=== PATIENT | female | born 1970 | race Caucasian/White ===

== ENCOUNTER → 2019-09-05 | Outpatient (CLI) | payer BC ==
[2016-09-07 06:31] VITALS: BP 142/70
[~2019-09-05] MED LIST: PRED20TA PO
--- NOTE | 2019-09-06 09:10 | RAD ---
DATE: 09/05/2019 EXAM: MAMMO JOSE SCREENING BILATERAL HISTORY: Asymptomatic screening mammogram COMPARISON: 09/27/2015, 09/19/2014 This study was interpreted with the benefit of Computerized Aided Detection (CAD). Breast Density: SCATTERED The breast parenchyma shows scattered fibroglandular densities. Breast parenchyma level B. FINDINGS: Bilateral CC and MLO views of the breasts were performed. Bilateral breast tomosynthesis was performed in CC and MLO projections. Right breast: There are no suspicious microcalcifications, masses or areas of architectural distortion. Left breast: There are no suspicious microcalcifications, masses or areas of architectural distortion. Findings are stable from prior mammogram. IMPRESSION: Negative bilateral mammogram. BI-RADS CATEGORY: 1 NEGATIVE RECOMMENDED FOLLOW-UP: 12M 12 MONTH FOLLOW-UP PQRS compliance statement: Patient information was entered into a reminder system with a target due date 09/05/2020 for the next mammogram. Mammography is a sensitive method for finding small breast cancers, but it does not detect them all and is not a substitute for careful clinical examination. A negative mammogram does not negate a clinically suspicious finding and should not result in delay in biopsying a clinically suspicious abnormality. "Our facility is accredited by the [employer] Mammography Program."
== END | disposition home or self-care (01) ==
LOC: MAMMO 15:43
PROVIDERS: ATTEND Physician Assistant Medical
DX: Z12.31 Encounter for screening mammogram for malignant neoplasm of breast (principal)
CPT/HCPCS: 77063; 77067

== ENCOUNTER 2019-12-11 07:41 | Emergency (ER) | payer BC ==
[~2019-12-11] VITALS: Ht 147.3 cm; Wt 65.3 kg
--- NOTE | 2019-12-11 08:18 | PHYS DOC ---
Past History Past Medical History: No Pertinent History Past Surgical History: , Hysterectomy Alcohol Use: Occasionally Drug Use: None Adult General Chief Complaint Chief Complaint: VAGINAL PROBLEM HPI HPI 49-year-old female presents for concerns of STD. The patient has been having vaginal itching, dryness, some pain. She denies vaginal discharge. The patient admits to having sex with someone outside of her marriage. She denies fever or chills. She has had some urinary frequency. She has been using vaginal wipes and cleansing washes. Review of Systems Review of Systems Constitutional: Denies fever or chills [] Eyes: Denies change in visual acuity, redness, or eye pain [] HENT: Denies nasal congestion or sore throat [] Respiratory: Denies cough or shortness of breath [] Cardiovascular: No additional information not addressed in HPI [] GI: Denies abdominal pain, nausea, vomiting, bloody stools or diarrhea [] : No itching, increased urinary frequency[] Musculoskeletal: Denies back pain or joint pain [] Integument: Denies rash or skin lesions [] Neurologic: Denies headache, focal weakness or sensory changes [] Endocrine: Denies polyuria or polydipsia [] All other systems were reviewed and found to be within normal limits, except as documented in this note. Allergies Allergies Allergies Coded Allergies Type Severity Reaction Last Updated Verified Penicillins Allergy Unknown 09/07/16 Yes Physical Exam Physical Exam Constitutional: Well developed, well nourished, no acute distress, non-toxic appearance. [] HENT: Normocephalic, atraumatic, bilateral external ears normal, oropharynx moist, no oral exudates, nose normal. [] Eyes: PERRLA, EOMI, conjunctiva normal, no discharge. [] Neck: Normal range of motion, no tenderness, supple, no stridor. [] Cardiovascular:Heart rate regular rhythm, no murmur [] Lungs & Thorax: Bilateral breath sounds clear to auscultation [] Abdomen: Bowel sounds normal, soft, no tenderness, no masses, no pulsatile masses. [] Skin: Warm, dry, no erythema, no rash. [] Back: No tenderness, no CVA tenderness. [] Extremities: No tenderness, no cyanosis, no clubbing, ROM intact, no edema. [] Neurologic: Alert and oriented X 3, normal motor function, normal sensory function, no focal deficits noted. [] Psychologic: Affect normal, judgement normal, mood nervous. : Normal external exam, mildly dry vaginal canal with some thick, white discharge. No pain with exam. [] EKG EKG [] Radiology/Procedures Radiology/Procedures [] Course & Med Decision Making Course & Med Decision Making Pertinent Labs and Imaging studies reviewed. (See chart for details) The patient's urinalysis is unremarkable. Her wet prep is negative. Her discomfort could be due to her use of hygiene products. I advised the patient of this. She is stable for discharge at this time. [] Dragon Disclaimer Dragon Disclaimer This electronic medical record was generated, in whole or in part, using a voice recognition dictation system. Departure Departure: Impression: Primary Impression: Vaginal discomfort Disposition: 01 HOME, SELF-CARE Condition: STABLE Referrals: PCP,NO (PCP) Patient Instructions: Vaginitis, Atrophic, [id number] STEVE ANGUIANO DO Dec 11, 2019 08:18
[2019-12-11 08:50] LABS: BACTERIA,URINE 0 /HPF (0-FEW); BILIRUBIN,URINE NEG (NEG); CLARITY,URINE CLEAR; COLOR,URINE YELLOW; GLUCOSE,URINE NEG (NEG); NITRITE,URINE NEG (NEG); SQUAMOUS EPITHELIAL CELL,UR MOD /LPF; UROBILINOGEN,URINE 0.2 mg/dL (0.2 mg/dL); WBC,URINE OCC /HPF (0-4)
[2019-12-11 09:48] VITALS: BP 138/84
[2019-12-12 20:07] LABS: CHLAMYDIA PROBE Negative (Negative)
== END 2019-12-11 09:45 | disposition home or self-care (01) ==
LOC: ER 07:41
DX: N89.8 Other specified noninflammatory disorders of vagina (principal); R35.0 Frequency of micturition; Z98.890 Other specified postprocedural states; Z90.710 Acquired absence of both cervix and uterus; Z88.0 Allergy status to penicillin
CPT/HCPCS: 36415; 81001; 87491; 87591; 99284; Q0111

== ENCOUNTER 2021-09-25 13:45 | Emergency (ER) | payer SELFPAY ==
[~2021-09-25] VITALS: Ht 147.3 cm; Wt 70.0 kg
--- NOTE | 2021-09-25 14:23 | PHYS DOC ---
Past History Past Medical History: No Pertinent History Past Surgical History: , Hysterectomy Alcohol Use: None Drug Use: None General Adult EDM: Chief Complaint: HIP PAIN HPI: HPI: 51-year-old female presents with left lateral hip pain and abdominal. Patient has been having lateral left leg discomfort for about 3 weeks. She walks around a lot at work and has to wear steel boots. She presents today because the pain has radiated around to her lower abdomen and her back. She is also not know what is going on. She has not had discomfort like this before. She denies any falls or trauma. Denies fever, chills nausea, vomiting, or diarrhea. She does admit to not drinking very much water. Review of Systems: Review of Systems: Constitutional: Denies fever or chills Eyes: Denies change in visual acuity HENT: Denies nasal congestion or sore throat Respiratory: Denies cough or shortness of breath Cardiovascular: Denies chest pain or edema GI: Lower abdominal pain. Denies nausea, vomiting, bloody stools or diarrhea : Denies dysuria Musculoskeletal: left lateral hip pain Integument: Denies rash Neurologic: Denies headache, focal weakness or sensory changes Endocrine: Denies polyuria or polydipsia Lymphatic: Denies swollen glands Psychiatric: Denies depression or anxiety Allergies: Allergies: Allergies Coded Allergies Type Severity Reaction Last Updated Verified Penicillins Allergy Unknown 09/07/16 Yes Physical Exam: PE: Constitutional: Well developed, well nourished, no acute distress, non-toxic appearance. [] HENT: Normocephalic, atraumatic, bilateral external ears normal, oropharynx moist, no oral exudates, nose normal. [] Eyes: PERRLA, EOMI, conjunctiva normal, no discharge. [] Neck: Normal range of motion, no tenderness, supple, no stridor. [] Cardiovascular: Heart rate regular rhythm, no murmur [] Lungs & Thorax: Bilateral breath sounds clear to auscultation [] Abdomen: Bowel sounds normal, soft, lower abdominal tenderness, no masses, no pulsatile masses. [] Skin: Warm, dry, no erythema, no rash. [] Back: No tenderness, no CVA tenderness. [] Extremities: Tightness of the left ATFL ligament, mild tenderness. [] Neurologic: Alert and oriented X 3, normal motor function, normal sensory function, no focal deficits noted. [] Psychologic: Affect normal, judgement normal, mood normal. [] Current Patient Data: Vital Signs: Vital Signs Date Time Temp Pulse Resp B/P (MAP) Pulse Ox O2 Delivery O2 Flow Rate FiO2 09/25/21 13:55 98.4 73 16 209/80 (123) 99 Room Air EKG: EKG: [] Radiology/Procedures: Radiology/Procedures: [] Impressions: XR BILATERAL HIP (WITH OR WITHOUT PELVIS) LEFT 2 VIEWS Clinical indications: Reason: pain, no known injury. Findings: No acute fracture or dislocation or osteolytic process is evident. No significant arthritic change is seen. IMPRESSION: No acute osseous abnormality is evident. Electronically signed by: Shasta Mathews MD (09/25/2021 2:33 PM) [id number] DICTATED AND SIGNED BY: SHASTA MATHEWS MD DATE: 09/25/21 1431 CC: STEVE ANGUIANO DO; PCP,NO ~MTH0 0 CT ABDOMEN+PELVIS W History: Lower abdominal pain. Comparison: None. Technique: CT of the abdomen and pelvis with intravenous contrast. Findings: Lung bases are clear. The visualized heart is unremarkable. The liver, gallbladder, pancreas, spleen, and adrenal glands are unremarkable. There are subcentimeter right renal hypodensities which are too small to characterize most likely represent cysts. No hydronephrosis or nephrolithiasis. The bladder is decompressed and unremarkable. Status post hysterectomy. There is a left adnexal cystic lesion measuring 3.2 cm diameter. The stomach and small bowel are unremarkable. Normal appendix. The colon is within normal limits. No free intraperitoneal air or fluid. Abdominopelvic vasculature is within normal limits. No adenopathy. Soft tissues are unremarkable. No acute osseous abnormalities. Impression: 1. Left adnexal cystic lesion measuring 3.2 cm may represent ovarian follicle/cyst. Correlate with site of pain. Consider pelvic ultrasound for further characterization. ------ Exposure: One or more of the following individualized dose reduction techniques were utilized for this examination: 1. Automated exposure control 2. Adjustment of the mA and/or kV according to patient size 3. Use of iterative reconstruction technique. Electronically signed by: Justin Luna MD (09/25/2021 2:52 PM) [facility] DICTATED AND SIGNED BY: JUSTIN LUNA MD DATE: 09/25/21 1449 CC: STEVE ANGUIANO DO; PCP,NO ~MTH0 0 Heart Score: C/O Chest Pain: N/A Risk Factors: Risk Factors: DM, Current or recent (<one month) smoker, HTN, HLP, family history of CAD, obesity. Risk Scores: Score 0 - 3: 2.5% MACE over next 6 weeks - Discharge Home Score 4 - 6: 20.3% MACE over next 6 weeks - Admit for Clinical Observation Score 7 - 10: 72.7% MACE over next 6 weeks - Early Invasive Strategies Course & Med Decision Making: Course & Med Decision Making Pertinent Labs and Imaging studies reviewed. (See chart for details) The patient's hip x-ray is negative for acute findings. Labs are unremarkable. She is tender in the lower abdomen so I have ordered a CT of the abdomen and pelvis. The patient CT is significant for a left adnexal cyst. I will order an ultrasound for further characterization and to rule out torsion. The patient's ultrasound shows no ovarian torsion. It was inconclusive as to whether there was internal complexity of the cystic lesion. See official read for details. 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 She is stable for discharge at this time. [] Dragon Disclaimer: Dragon Disclaimer: This electronic medical record was generated, in whole or in part, using a voice recognition dictation system. Departure Departure: Impression: Primary Impression: Left ovarian cyst Disposition: HOME / SELF CARE / HOMELESS Condition: STABLE Referrals: PCP,NO (PCP) Patient Instructions: Ovarian Cyst, [id number] STEVE ANGUIANO DO Sep 25, 2021 14:23
[2021-09-25] MEDS ORDERED: IOHEXOL 300 MG/ML 75 ML VIAL. IV ONE (14:30)
[2021-09-25] MEDS ORDERED: CONTRAST GIVEN. MC PRN (14:30)
--- NOTE | 2021-09-25 14:35 | RAD ---
XR BILATERAL HIP (WITH OR WITHOUT PELVIS) LEFT 2 VIEWS Clinical indications: Reason: pain, no known injury. Findings: No acute fracture or dislocation or osteolytic process is evident. No significant arthriti c change is seen. IMPRESSION: No acute osseous abnormality is evident. Electronically signed by: Dada Mathews MD (09/25/2021 2:33 PM) [id number]
[2021-09-25 14:53] LABS: BASO % 1 % (0-3); EOS # 0.1 x10^3/uL (0.0-0.7); EOS % 1 % (0-3); HEMATOCRIT 40.9 % (36.0-47.0); HEMOGLOBIN 13.5 g/dL (12.0-15.5); LYMPH # 1.1 x10^3/uL (1.0-4.8); LYMPH % 12 % (24-48); MEAN CORPUSCULAR HEMOGLOBIN 30 pg (25-35); MEAN CORPUSCULAR HGB CONC 33 g/dL (31-37); MEAN CORPUSCULAR VOLUME 91 fL (79-100); MONO # 0.9 x10^3/uL (0.0-1.1); MONO % 10 % (0-9); NEUT # 6.7 x10^3uL (1.8-7.7); NEUT % 76 % (31-73); PLATELET COUNT 220 x10^3/uL (140-400); RED BLOOD COUNT 4.49 x10^6/uL (3.50-5.40); WHITE BLOOD COUNT 8.9 x10^3/uL (4.0-11.0)
--- NOTE | 2021-09-25 14:55 | RAD ---
CT ABDOMEN+PELVIS W History: Lower abdominal pain. Comparison: None. Technique: CT of the abdomen and pelvis with intravenous contrast. Findings: Lung bases are clear. The visualized heart is unremarkable. The liver, gallbladder, pancreas, spleen, and adrenal glands are unremarkable. There are subcentimete r right renal hypodensities which are too small to characterize most likely represent cysts. No hydro nephrosis or nephrolithiasis. The bladder is decompressed and unremarkable. Status post hysterectomy. There is a left adnexal cystic lesion measuring 3.2 cm diameter. The stomach and small bowel are unremarkable. Normal appendix. The colon is within normal limits. No free intraperitoneal air or fluid. Abdominopelvic vasculature is within normal limits. No adenopathy. Soft tissues are unremarkable. No acute osseous abnormalities. Impression: 1. Left adnexal cystic lesion measuring 3.2 cm may represent ovarian follicle/cyst. Correlate with s ite of pain. Consider pelvic ultrasound for further characterization. ------ Exposure: One or more of the following individualized dose reduction techniques were utilized for thi s examination: 1. Automated exposure control 2. Adjustment of the mA and/or kV according to patient size 3. Use of iterative reconstruction technique. Electronically signed by: Justin Cruz MD (09/25/2021 2:52 PM) [facility]
[2021-09-25 15:01] LABS: CALCIUM 8.7 mg/dL (8.5-10.1); CREATININE 0.8 mg/dL (0.6-1.0); GFR 75.3; POTASSIUM 3.7 mmol/L (3.5-5.1)
[2021-09-25 15:07] LABS: ALBUMIN 3.4 g/dL (3.4-5.0); ALBUMIN/GLOBULIN RATIO 0.9 (1.0-1.7); TOTAL BILIRUBIN 0.2 mg/dL (0.2-1.0); TOTAL PROTEIN 7.3 g/dL (6.4-8.2)
[2021-09-25 15:11] LABS: BILIRUBIN,URINE NEG (NEG); CLARITY,URINE CLEAR; COLOR,URINE YELLOW; GLUCOSE,URINE NEG (NEG)
[2021-09-25 15:12] LABS: BACTERIA,URINE 0 /HPF (0-FEW); NITRITE,URINE NEG (NEG); RBC,URINE RARE /HPF (0-2); SQUAMOUS EPITHELIAL CELL,UR MOD /LPF; UROBILINOGEN,URINE 0.2 mg/dL (0.2 mg/dL); WBC,URINE 0 /HPF (0-4)
[2021-09-25 15:53] VITALS: BP 167/78
--- NOTE | 2021-09-25 16:57 | RAD ---
INDICATION: Reason: left adnexal mass on CT / Spl. Instructions: / History: COMPARISON: CT from earlier same day TECHNIQUE: Grayscale and color ultrasound images uterus and adnexa. Transabdominal images were [id number] [id number] FINDINGS: The patient is status post hysterectomy and reported right oophorectomy without visualization of the uterus or right ovary. Left ovary is 46 x 30 x 27 mm. 33 x 29 mm hypoechoic lesion of the left ovary. Vascular flow is seen to the left ovary. IMPRESSION: * Hypoechoic lesion is seen at the left ovary which could be secondary to a cystic lesion. Its diff icult to tell if there is any internal complexity and a follow-up could be obtained in a few months t o ensure no increase. Electronically signed by: George Lee MD (09/25/2021 4:55 PM) [id number]
== END 2021-09-25 17:18 | disposition home or self-care (01) ==
LOC: ER 13:45
DX: N83.202 Unspecified ovarian cyst, left side (principal); Z88.0 Allergy status to penicillin; Z90.710 Acquired absence of both cervix and uterus
CPT/HCPCS: 36415; 73502; 74177; 76856; 80053; 81001; 85025; 99285; Q9967